=== PATIENT | male | born 1950 | race Caucasian/White ===

== ENCOUNTER 2020-01-20 07:23 | Day surgery (SDC) | payer MEDICARE, BC ==
[2020-01-15 15:59] LABS: ALBUMIN 3.7 G/DL (3.4-5.0); ALBUMIN/GLOBULIN RATIO 1.1 (1.1-1.5); ALKALINE PHOSPHATASE 68 IU/L (46-116); BLOOD UREA NITROGEN 23 MG/DL (7-18); BUN/CREATININE RATIO 21.3 (5.4-32.0); CALCIUM 9.2 MG/DL (8.5-10.1); CHLORIDE 108 MMOL/L (99-107); CREATININE 1.08 MG/DL (0.60-1.10); PRE OP ALT 34 U/L (30-65); PRE OP ANION GAP 4 (8-16); PRE OP AST 23 U/L (10-37); PRE OP BILIRUB, TOTAL 0.5 MG/DL (0.0-1.0); PRE OP GLUCOSE 71 MG/DL (70-104); PRE OP SODIUM 143 MMOL/L (135-145); TOTAL CARBON DIOXIDE 30.8 MMOL/L (24-32); TOTAL PROTEIN 7.1 G/DL (6.4-8.2); eGFR 67 ML/MIN
[2020-01-15 16:15] LABS: CLARITY,URINE CLEAR (Clear); COLOR,URINE YELLOW (Yellow); GLUCOSE, URINE NEGATIVE (Neg); KETONES,URINE NEGATIVE (Neg); LEUKOCYTE ESTERASE ,URINE NEGATIVE (Neg); NITRITES, URINE NEGATIVE (Neg); OCCULT BLOOD,URINE NEGATIVE (Neg); PROTEIN,URINE NEGATIVE (Neg); UROBILINOGEN,URINE 0.2 E.U/dL (0.2-1.0)
[2020-01-15 16:17] LABS: BASOPHILS % (AUTO) 0.6 % (0-1); EOSINOPHILS # (AUTO) 0.2 X10'3 (0-0.9); EOSINOPHILS % (AUTO) 3.3 % (0-6); LYMPHOCYTES # (AUTO) 1.2 X10'3 (1.1-4.8); LYMPHOCYTES % (AUTO) 23.3 % (21-51); MEAN CORPUSCULAR HEMOGLOBIN 36.1 PG (27.0-31.0); MEAN CORPUSCULAR HGB CONC 35.4 g/dL (33.0-36.5); MEAN CORPUSCULAR VOLUME 102.2 FL (78-98); MEAN PLATELET VOLUME 8.3 FL (7.4-10.4); MONOCYTES # (AUTO) 0.5 X10'3 (0-0.9); MONOCYTES % (AUTO) 10.3 % (2-12); NEUTROPHILS # (AUTO) 3.2 X10'3 (1.8-7.7); NEUTROPHILS % (AUTO) 62.5 % (42-75); PRE OP HEMOGLOBIN 15.9 g/dL (14.0-17.9); PRE OP PLATELET COUNT 180 X10'3 (140-440); RED CELL DISTRIBUTION WIDTH 13.4 % (11.5-14.5)
[2020-01-15 16:17] LABS: UA COLLECTION TYPE CLN CATCH MIDSTREAM
[2020-01-20] VITALS (13 sets, daily range): BP systolic 124–147; BP diastolic 61–97
[~2020-01-20] VITALS: Ht 167.6 cm; Wt 79.0 kg
[~2020-01-20 07:23] MED LIST: CARI-433 PO; HYDR-3973 PO; LISI40TA4 PO; ROSU10TA28 PO; cefazolin/dext.iso 2gm/100ml 100 ML IV ONE; famotidine 20mg tablet PO ONE; ringers solution, lacted 1,000 ML IV SCH
[2020-01-20] MEDS ORDERED: BUPIVAcaine/PF 2.5mg/ml (0.25%) 10ml vial ONE (08:04)
[2020-01-20] MEDS ORDERED: ceFAZolin 1000mg inj ONE (08:04)
[2020-01-20] MEDS ORDERED: LIDOcaine 1% (10mg/ml) 2ml vial ONE (08:31)
[2020-01-20] MEDS ORDERED: ringers solution, lacted 1,000 ML IV SCH (10:42)
[2020-01-20] MEDS ORDERED: proCHLORperazine 10 MG/2 ml inj IV PRN (10:45)
[2020-01-20] MEDS ORDERED: morphine 4 MG/ML inj SYRINge IV PRN (10:45)
[2020-01-20] MEDS ORDERED: morphine 2 MG/ML inj. syringe IV PRN (10:45)
[2020-01-20] MEDS ORDERED: ondansetron/PF 4mg/2ml inj IV PRN (10:45)
[2020-01-20] MEDS ORDERED: meperidine/PF 25mg/ml syringe IV PRN ×2 (10:45)
[2020-01-20] MEDS ORDERED: midazolam 2 mg/2 ml injection ONE (10:52)
[2020-01-20] MEDS ORDERED: fentaNYL/PF 50MCG/1 ML 2ML syringe ONE (10:52)
[2020-01-20] MEDS ORDERED: ondansetron/PF 4mg/2ml inj ONE (11:12)
[2020-01-20] MEDS ORDERED: rocuronium 10mg/ml inj IV ONE (11:12)
[2020-01-20] MEDS ORDERED: LIDOcaine 2% (20mg/ml) 5ml vial ONE (11:12)
[2020-01-20] MEDS ORDERED: propofol inj 20 ML IV ONE (11:12)
[2020-01-20] MEDS ORDERED: ketorolac trometh. 30mg/ml inj. ONE (12:07)
[2020-01-20] MEDS ORDERED: neostigmine methylsulfate 1 MG/ML 10ml vial ONE (12:07)
[2020-01-20] MEDS ORDERED: glycopyrrolate 0.2mg/ml inj ONE (12:07)
--- NOTE | 2020-01-20 12:14 | NUR ---
Received from OR via [facility], accompanied by Anesthesiologist DR PIÑA and report given by Anesthesiologist. PT DROWSY, DENIES PAIN, ABDOMEN W/2 LAP SITES W/BANDAIDS CDI. Addendum: 01/20/20 at 1228 by Shey Dewey RN Amended: Links added.
[2020-01-20] MEDS ORDERED: acetaminophen 1,000mg/100ml IV 100 ML IV ONE (13:25)
[2020-01-20] MEDS: meperidine/PF 25mg/ml syringe IV PRN ×2 (13:36→13:56)
--- NOTE | 2020-01-20 14:04 | NUR ---
PT PAIN IMPROVED, VSS, WAITING TO VOID, PT SENT BACK TO [facility], BELONGINGS SENT W/PT, REPORT TO RECEIVING BRITTANY WOLFF. Addendum: 01/20/20 at 1412 by Shey Dewey RN Amended: Links added.
[2020-01-20] MEDS ORDERED: oxyCODONE/APAP 10/325mg tablet PO ONE (14:55)
--- NOTE | 2020-01-20 15:30 | NUR ---
pt ambulated with out difficulty. vss. tolerating po fluids and snacks well. given percocet 10/325mg for moderate pain. bandaids cdi. pt was able to void in toilet, no straining involved. denies bladder pressure. pt and his were given dc instructions including to return to er if unable to void. they verbalized understanding. dcd in stable condition, taken to car via [facility].
== END 2020-01-20 15:30 | disposition home or self-care (01) ==
LOC: PAS 07:23
PROVIDERS: ATTEND Surgery
DX: K40.90 Unilateral inguinal hernia, without obstruction or gangrene, not specified as recurrent (principal); E78.5 Hyperlipidemia, unspecified; I10 Essential (primary) hypertension; G47.00 Insomnia, unspecified; M54.5 Low back pain; Z79.899 Other long term (current) drug therapy; Z98.890 Other specified postprocedural states; G89.29 Other chronic pain
CPT/HCPCS: 36415; 49650; 80053; 81003; 82948; 85025; 93005; C1781; J0131; J0690; J1885; J2001; J2175; J2250; J2405; J2704; J2710; J3010; J3490; J7120; A4215; A4314; A4618; A6258; A7000

== ENCOUNTER 2020-08-24 07:23 | Day surgery (SDC) | payer MEDICARE, BC ==
[2020-08-18 09:57] LABS: CLARITY,URINE CLEAR (Clear); COLOR,URINE YELLOW (Yellow); GLUCOSE, URINE NEGATIVE (Neg); KETONES,URINE NEGATIVE (Neg); LEUKOCYTE ESTERASE ,URINE NEGATIVE (Neg); NITRITES, URINE NEGATIVE (Neg); OCCULT BLOOD,URINE NEGATIVE (Neg); PH,URINE 5.5 (4.8-8.0); PROTEIN,URINE NEGATIVE (Neg); UROBILINOGEN,URINE 0.2 E.U/dL (0.2-1.0)
[2020-08-18 10:00] LABS: UA COLLECTION TYPE CLN CATCH MIDSTREAM
[2020-08-18 10:06] LABS: BASOPHILS % (AUTO) 0.8 % (0-1); LYMPHOCYTES # (AUTO) 1.3 X10'3 (1.1-4.8); LYMPHOCYTES % (AUTO) 25.5 % (21-51); MEAN CORPUSCULAR HEMOGLOBIN 36.7 PG (27.0-31.0); MEAN CORPUSCULAR VOLUME 104.6 FL (78-98); MEAN PLATELET VOLUME 7.7 FL (7.4-10.4); MONOCYTES # (AUTO) 0.4 X10'3 (0-0.9); MONOCYTES % (AUTO) 7.9 % (2-12); NEUTROPHILS # (AUTO) 3.2 X10'3 (1.8-7.7); NEUTROPHILS % (AUTO) 64.8 % (42-75); PRE OP HEMATOCRIT 45.9 % (42.0-52.0); PRE OP HEMOGLOBIN 16.1 g/dL (14.0-17.9); PRE OP PLATELET COUNT 175 X10'3 (140-440); RED BLOOD COUNT 4.39 X10'6 (4.70-6.10)
[2020-08-18 10:15] LABS: ALBUMIN/GLOBULIN RATIO 1.1 (1.1-1.5); ALKALINE PHOSPHATASE 71 IU/L (46-116); BLOOD UREA NITROGEN 15 MG/DL (7-18); BUN/CREATININE RATIO 16.1 (5.4-32.0); CALCIUM 9.1 MG/DL (8.5-10.1); CHLORIDE 106 MMOL/L (99-107); CREATININE 0.93 MG/DL (0.60-1.10); PRE OP ALT 38 U/L (30-65); PRE OP ANION GAP 6 (8-16); PRE OP AST 21 U/L (10-37); PRE OP BILIRUB, TOTAL 0.7 MG/DL (0.0-1.0); PRE OP GLUCOSE 99 MG/DL (70-104); PRE OP SODIUM 142 MMOL/L (135-145); TOTAL CARBON DIOXIDE 29.9 MMOL/L (24-32); TOTAL PROTEIN 7.5 G/DL (6.4-8.2); eGFR 80 ML/MIN
[~2020-08-24] VITALS: Ht 167.6 cm; Wt 78.0 kg
[2020-08-24] VITALS (10 sets, daily range): BP systolic 133–169; BP diastolic 51–96
[~2020-08-24 07:23] MED LIST changes: +CYAN1TAB65 PO; +MULT-1085 PO; +VITAMIN D3 PO; -cefazolin/dext.iso 2gm/100ml 100 ML IV ONE; +cefazolin/dext.iso 2gm/50ml 50 ML IV ONE; +famotidine 10mg tablet PO ONE; -famotidine 20mg tablet PO ONE
[2020-08-24] MEDS ORDERED: LIDOcaine 1% (10mg/ml) 2ml vial ONE (08:08)
[2020-08-24] MEDS ORDERED: ceFAZolin 1000mg inj ONE (09:08)
[2020-08-24] MEDS ORDERED: BUPIVAcaine/PF 2.5 mg/ml (0.25%) 30ml vial ONE (09:08)
[2020-08-24] MEDS ORDERED: hydrALAZINE 20mg/ml inj. IV PRN (09:15)
[2020-08-24] MEDS ORDERED: fentaNYL/PF 50MCG/1 ML 2ML syringe IV PRN ×2 (09:15)
[2020-08-24] MEDS ORDERED: ringers solution, lacted 1,000 ML IV SCH (09:15)
[2020-08-24] MEDS ORDERED: morphine 2 MG/ML inj. syringe IV PRN (09:15)
[2020-08-24] MEDS ORDERED: ondansetron/PF 4mg/2ml inj IV PRN (09:15)
[2020-08-24] MEDS ORDERED: labetalol 20mg/4ml (5mg/ml) syringe IV PRN (09:15)
[2020-08-24] MEDS ORDERED: morphine 4 MG/ML inj SYRINge IV PRN (09:15)
[2020-08-24] MEDS ORDERED: sevoflurane 250ml liquid IH ONE (09:41)
[2020-08-24] MEDS ORDERED: MIDAZolam 5mg/5ml vial ONE (09:46)
[2020-08-24] MEDS ORDERED: fentaNYL/PF 50MCG/1 ML 2ML syringe ONE (09:46)
[2020-08-24] MEDS ORDERED: LIDOcaine 2% (20mg/ml) 5ml vial ONE (09:52)
[2020-08-24] MEDS ORDERED: propofol inj 20 ML IV ONE (09:52)
[2020-08-24] MEDS ORDERED: rocuronium 10mg/ml inj IV ONE (09:52)
[2020-08-24] MEDS ORDERED: ondansetron/PF 4mg/2ml inj ONE (09:53)
[2020-08-24] MEDS ORDERED: dexamethasone sod phosphate 4mg/ml inj. ONE (09:53)
--- NOTE | 2020-08-24 11:04 | NUR ---
Received from OR via [facility] , accompanied by Anesthesiologist LISSY and report given by Anesthesiolgist. PATIENT WITH 20G PIV IN RIGHT UE RUNNING LR AT 100. DENIES PAIN . 2 UMBILICAL BANDAIDS PRESENT THAT ARE CDI. 10L MASK ON WITH 99% SATURATIONS. Addendum: 08/24/20 at 1111 by Joe Mora RN, RN Amended: Links added.
--- NOTE | 2020-08-24 12:09 | NUR ---
99 BLOOD GLUCOSE IN RR. Addendum: 08/24/20 at 1209 by Joe Mora RN RN Amended: Links added.
--- NOTE | 2020-08-24 12:24 | NUR ---
PATIENT AND FAMILY AND THEY HAVE VERBALIZED UNDERSTANDING, OPPORTUNITY TO ASK QUESTIONS GIVEN AND PATIENT COMFORTABLE WITH DC. IV TAKEN OUT WITHOUT COMPLICATION. PATIENT HAS MET ALL DC CRITERIA FOR DC HOME. I HAVE REVIEWED D/C INSTRUCTIONS WITH OUT VIA WHEELCHAIR WHERE PATIENT WAS TAKEN HOME WITH ALL BELONGINGS. FAMILY GAVE PATIENT TRANSPORT HOME. Addendum: 08/24/20 at 1308 by Joe Mora RN, RN Amended: Links added.
== END 2020-08-24 12:24 | disposition home or self-care (01) ==
LOC: PAS 07:23
PROVIDERS: ATTEND Surgery
DX: K40.90 Unilateral inguinal hernia, without obstruction or gangrene, not specified as recurrent (principal); D17.6 Benign lipomatous neoplasm of spermatic cord; I10 Essential (primary) hypertension; F41.9 Anxiety disorder, unspecified; N40.0 Benign prostatic hyperplasia without lower urinary tract symptoms; G47.00 Insomnia, unspecified; G89.29 Other chronic pain; Z98.890 Other specified postprocedural states; Z20.828 Contact with and (suspected) exposure to other viral communicable diseases; Z79.899 Other long term (current) drug therapy; Z83.79 Family history of other diseases of the digestive system; Z81.8 Family history of other mental and behavioral disorders
CPT/HCPCS: 36415; 49505; 80053; 81003; 82948; 85025; 87635; 93005; C1727; C1781; J0690; J1100; J2001; J2250; J2405; J2704; J3010; J3490; A4215; A4314; A4618; A6258; J7120

== ENCOUNTER 2021-09-04 13:11 | Emergency (ER) | payer MEDICARE, BC ==
[~2021-09-04] VITALS: Ht 167.6 cm; Wt 107.0 kg
[~2021-09-04 13:11] MED LIST changes: +LISI40TA13 PO; -LISI40TA4 PO; -cefazolin/dext.iso 2gm/50ml 50 ML IV ONE; -famotidine 10mg tablet PO ONE; -ringers solution, lacted 1,000 ML IV SCH
[2021-09-04 13:56] LABS: ALANINE AMINOTRANSFERASE 97 U/L (12-78); ALBUMIN 3.3 G/DL (3.4-5.0); ALBUMIN/GLOBULIN RATIO 0.9 (1.1-1.5); ALKALINE PHOSPHATASE 61 IU/L (46-116); ANION GAP 10 (8-16); ASPARTATE AMINO TRANSFERASE 105 U/L (10-37); BILIRUBIN,TOTAL 0.8 MG/DL (0.1-1.0); BLOOD UREA NITROGEN 25 MG/DL (7-18); BUN/CREATININE RATIO 20.3 (5.4-32.0); CALCIUM 8.2 MG/DL (8.5-10.1); CHLORIDE 98 MMOL/L (99-107); CREATININE 1.23 MG/DL (0.60-1.10); GLUCOSE 108 MG/DL (70-104); LACTATE DEHYDROGENASE 439 U/L (85-227); POTASSIUM 4.2 MMOL/L (3.5-5.1); SODIUM 131 MMOL/L (135-145); TOTAL CARBON DIOXIDE 22.6 MMOL/L (24-32); TOTAL PROTEIN 7.1 G/DL (6.4-8.2); eGFR 58 ML/MIN
[2021-09-04] MEDS ORDERED: acetaminophen 325mg tablet PO ONE (14:05)
[2021-09-04 14:27] LABS: C-REACTIVE PROTEIN 0.49 MG/DL (0.0-0.5)
[2021-09-04] MEDS ORDERED: CASIRIVIMAB/IMDEVIMAB inject. 10 ML in normal saline 100ml IV soln 100 ML IV ONE (14:30)
[2021-09-04] MEDS ORDERED: BAMLANIVIMAB 700MG, ETESEVIMAB 1,400MG in NS 100mL (Total vol 160ml) IV ONE (14:40)
[2021-09-04 14:44] LABS: BASOPHILS % (AUTO) 0.4 % (0-1); EOSINOPHILS % (AUTO) 0 % (0-6); HEMATOCRIT 44.5 % (42.0-52.0); HEMOGLOBIN 16.1 g/dl (14.0-17.9); LYMPHOCYTES # (AUTO) 0.5 X10'3 (1.1-4.8); LYMPHOCYTES % (AUTO) 17.8 % (21-51); MEAN CORPUSCULAR HEMOGLOBIN 36.5 PG (27.0-31.0); MEAN CORPUSCULAR HGB CONC 36.2 g/dL (33.0-36.5); MEAN CORPUSCULAR VOLUME 100.9 FL (78-98); MEAN PLATELET VOLUME 8.9 FL (7.4-10.4); MONOCYTES # (AUTO) 0.3 X10'3 (0-0.9); MONOCYTES % (AUTO) 8.8 % (2-12); NEUTROPHILS # (AUTO) 2.2 X10'3 (1.8-7.7); PLATELET COUNT 100 X10'3 (140-440); RED BLOOD COUNT 4.41 X10'6 (4.70-6.10); RED CELL DISTRIBUTION WIDTH 12.3 % (11.5-14.5); WHITE BLOOD COUNT 2.9 X10'3 (4.5-11.0)
[2021-09-04] MEDS ORDERED: ALBU8HFA PO (15:34)
[2021-09-04] MEDS ORDERED: BENZ-16 PO (15:34)
[2021-09-04 15:56] LABS: TOTAL CELLS COUNTED 100
[2021-09-04 15:57] LABS: PLATELET ESTIMATE DECREASED; SPHEROCYTES 3+
[2021-09-04 16:30] VITALS: BP 129/93
== END 2021-09-04 17:27 | disposition home or self-care (01) ==
LOC: ER 13:11
DX: U07.1 COVID-19 (principal); Z79.899 Other long term (current) drug therapy
CPT/HCPCS: 36415; 71045; 80053; 83615; 85007; 85025; 86140; 99284; M0245; Q0245; M0239; M0243; Q0239

== ENCOUNTER 2024-12-15 07:46 | Day surgery (SDC) | payer MEDICARE ==
[~2024-12-15] VITALS: Ht 167.6 cm; Wt 75.0 kg
[~2024-12-15 07:46] MED LIST changes: -CARI-433 PO; +CARI-515 PO; -ROSU10TA28 PO; +ROSU10TA72 PO
[2024-12-15 08:02] VITALS: BP 153/78; PULSE 69; RESP 21; TEMP 96.9
[2024-12-15] MEDS ORDERED: fentaNYL/PF 50MCG/1 ML 2ML syringe ONE (09:53)
[2024-12-15] MEDS ORDERED: propofol inj 20 ML IV ONE (09:53)
[2024-12-15] MEDS ORDERED: midazolam 1 mg/ML 2ml injection ONE (09:53)
[2024-12-15] MEDS ORDERED: LIDOcaine 2% (20mg/ml) 5ml vial ONE (09:53)
[2024-12-15 10:30] VITALS: BP 94/58; PULSE 64; RESP 10; O2SAT 93
[2024-12-15 10:40] VITALS: BP 102/63; PULSE 61; RESP 15; O2SAT 94
[2024-12-15 10:50] VITALS: BP 112/64; PULSE 54; RESP 16; O2SAT 95
[2024-12-15 11:00] VITALS: BP 111/64; PULSE 55; RESP 16; O2SAT 97
[2024-12-15 11:20] VITALS: BP 112/65; PULSE 57; RESP 15; O2SAT 98
== END 2024-12-15 11:20 | disposition home or self-care (01) ==
LOC: GI LAB 07:46
PROVIDERS: ATTEND Internal Medicine Gastroenterology
DX: Z12.11 Encounter for screening for malignant neoplasm of colon (principal); D12.3 Benign neoplasm of transverse colon; E11.22 Type 2 diabetes mellitus with diabetic chronic kidney disease; I12.9 Hypertensive chronic kidney disease with stage 1 through stage 4 chronic kidney disease, or unspecified chronic kidney disease; N18.9 Chronic kidney disease, unspecified; Z79.899 Other long term (current) drug therapy
CPT/HCPCS: 45385; A4620; C1889; J2003; J2250; J2704; J3010; J7030; Z7512; 88305